=== PATIENT | male | born 1955 | race African-American/Black ===

== ENCOUNTER 2016-06-13 11:17 | Outpatient (CLI) ==
[2012-10-04 15:27] VITALS: TEMP 97.6
[2015-02-19 14:55] VITALS: BMI 29.9
[2016-06-13 11:43] LABS: HEMATOCRIT 31.4 % (42.0-52.0); MEAN CORPUSCULAR HEMOGLOBIN 29.1 pg (27.0-31.0); MEAN CORPUSCULAR HGB CONC 31.8 (31.8-35.4); MEAN CORPUSCULAR VOLUME 91.3 fl (80.0-94.0); RED BLOOD COUNT 3.44 10^6/ul (4.70-6.10); WHITE BLOOD COUNT 3.34 K/ul (4.2-10.2)
[2016-06-13 12:03] LABS: ALBUMIN 3.7 g/dL (3.4-5.0); ALBUMIN/GLOBULIN RATIO 1.03; ANION GAP 14.4; BILIRUBIN,TOTAL 2.06 mg/dL (0.00-1.20); BUN/CREATININE RATIO 15.23; CALCIUM 9.5 mg/dL (8.2-10.2); CREATININE 1.51 mg/dL (0.60-1.10); POTASSIUM 4.4 mmol/L (3.5-5.1); TOTAL PROTEIN 7.3 g/dL (5.8-8.1)
[2016-06-14 04:08] LABS: URINE CREATININE 185.7 mg/dL (Not Estab.)
[2016-06-16 08:29] LABS: URINE MALB/CR RATIO 23.9 mg/g creat (0.0-30.0)
== END 2016-06-13 11:18 | disposition home or self-care (01) ==
LOC: LAB 11:17
PROVIDERS: ATTEND Internal Medicine Nephrology
DX: N18.3 Chronic kidney disease, stage 3 (moderate) (principal)
CPT/HCPCS: 36415; 80053; 82043; 85027

== ENCOUNTER 2016-06-26 12:32 | Emergency (ER) ==
[2016-06-26] MEDS ORDERED: LIDOCAINE 1 % AMP 5 ML (SUTURES) SUBCUT STA (12:38)
[2016-06-26 12:44] VITALS: BP 122/68; TEMP 97.8; BMI 32.9
[2016-06-26] MEDS ORDERED: BOOSTRIX IM ONE (13:24)
--- NOTE | 2016-06-26 13:27 | ED.PDOC ---
General ED Provider: Dr. KALEE GARCIA JR Chief Complaint: Laceration Stated Complaint: FELL ON STEPS AND HIT FRONT OF RIGHT LOWER LEG. LACERATION AND BLEEDING NOTED.[End]45 minutes 97.8 62 16 97% 122/68 8/10 HAS LOWER LEG EDEMA. BLEEDING CONTROLLED[ End ]5cm Time Seen by Physician: 13:00 Mode of Arrival: Walk-In Information Source: Patient Exam Limitations: No limitations Primary Care Provider: LORIN LEY Nursing and Triage Documentation Reviewed and Agree: No Review of Systems - Review Of Systems Constitutional: Reports: No symptoms Eyes: Reports: No symptoms Ears, Nose, Mouth, Throat: Reports: No symptoms Respiratory: Reports: No symptoms Cardiac: Reports: No symptoms GI: Reports: No symptoms : Reports: No symptoms Musculoskeletal: Reports: Joint pain, Joint swelling, Other (RIGHT LEG EDEMA SINCE DVT) Skin: Reports: Other Neurological: Reports: No symptoms Endocrine: Reports: No symptoms Hematologic/Lymphatic: Reports: Blood clots All Other Systems: Other Past Medical History - Past Medical History Previously Healthy: No Endocrine: Reports: DM 2 Cardiovascular: Reports: Hypertension, DVT Respiratory: Reports: Other (PULMONARY HYPERTENSION) Hematological: Reports: Anemia Gastrointestinal: Reports: None Genitourinary: Reports: Kidney stones, CKD Neuro/Psych: Reports: None Musculoskeletal: Reports: None Cancer: Reports: Other (KIDNEY) - Surgical History General Surgical History: Reports: CABG, Heart Cath (CARDIAC ANGIO), Orthopedic (ACL), Other (LEFT KIDNEY REMOVED) - Family History Family History: Reports: Unknown - Social History Smoking Status: Never smoker Hx Substance Use: No Alcohol Screening: Occasionally - Immunizations Tetanus Shot up to Date: No Physical Exam - Physical Exam Appearance: Well-appearing Pain Distress: Moderate Neck: Supple Respiratory: Airway patent Musculoskeletal: Normal strength, ROM intact, No edema, No calf tenderness Skin: Warm, Dry, Normal color (NOTE LESION) Neurological: Sensation intact, Motor intact, Reflexes intact, Cranial nerves intact, Alert, Oriented Procedures - Laceration/Wound Repair No standard instances Wound Description: Linear, Joint proximity (3cm below right patella) Critical Care Note - Critical Care Note Total Time (mins): 0 Course - Course Orders, Labs, Meds: Orders Category Date Time Status Diphth,Pertuss(Acell),Tet Vac [Boostrix] MEDS 06/26/16 13:24 Discontinued 0.5 ml IM .ONCE ONE Lidocaine HCl/Pf [Lidocaine 1 % Amp 5 ml (Sutures)] MEDS 06/26/16 12:38 Discontinued 5 ml SUBCUT ONCE STA Medications Discontinued Medications Generic Name Dose Route Start Last Admin Trade Name Olivia PRN Reason Stop Dose Admin Diphtheria/Pertussis/Tetanus Vacc 0.5 ml 06/26/16 13:24 06/26/16 13:33 Boostrix IM 06/26/16 13:25 0.5 ml .ONCE ONE Administration Lidocaine HCl 5 ml 06/26/16 12:38 06/26/16 13:30 Lidocaine 1 % Amp 5 Ml (Sutures) SUBCUT 06/26/16 12:39 5 ml ONCE STA Administration Vital Signs: Temp Pulse Resp BP Pulse Ox 06/26/16 12:39 97.8 F 62 16 122/68 97 Departure - Departure Time of Disposition: 13:30 Disposition: HOME SELF-CARE Discharge Problem: Laceration - injury Instructions: Laceration (ED) Condition: Good Pt referred to PMD for follow-up: Yes Additional Instructions: elevate right leg for two hours twice a day for next two weeks change bandage daily until wound dry change if bandage soaks through recheck if bleed through three times in one day, if red swollen increased pain or discharge may resume anticoagulant(Xarelto) if not actively bleeding sutures out in 7 to 9 days(seven in number) Prescriptions: Hydrocodone Bit/Acetaminophen [[place] 5-325] 1 - 2 tab PO Q6HR PRN #12 tablet PRN Reason: pain Allergies/Adverse Reactions: Allergies codeine Allergy (Intermediate, Verified 06/26/16 12:38) Abdominal Pain abdominal pain and nausea Home Medications: Ambulatory Orders Tamsulosin HCl [Flomax] 0.4 mg PO DAILY 12/06/13 Rivaroxaban [Xarelto] 20 mg PO DAILY 08/21/14 Sildenafil Citrate [Sildenafil] 20 mg PO TID 02/22/15 Hydrocodone Bit/Acetaminophen [[place] 5-325] 1 - 2 tab PO Q6HR PRN #12 tablet
== END 2016-06-26 14:13 | disposition home or self-care (01) ==
LOC: ED 12:32
DX: S81.811A Laceration without foreign body, right lower leg, initial encounter (principal); W10.9XXA Fall (on) (from) unspecified stairs and steps, initial encounter; R60.0 Localized edema; Z86.718 Personal history of other venous thrombosis and embolism
CPT/HCPCS: 90471; 99284